=== PATIENT | male | born 1945 | race Caucasian/White ===

== ENCOUNTER → 2018-02-22 | Outpatient (CLI) | payer MEDICARE, BC ==
[~2018-02-22] MED LIST: ASPIRIN E.C. 8181 MG PO; BENICAR40 MG PO; CHERATUSSIN; COZAAR 50MG50 MG/TAB PO; EPA-CON500 MG PO; GLUCOPHAGE500 MG/TAB PO; LIPITOR 40MG TA40 MG PO; LIPITOR40 MG PO; PRAVACHOL 20MG20 MG PO; PRAVACHOL 40MG40 MG PO; SLO-NIACIN500 MG PO; XOPENEX INHALER
== END ==
LOC: MHCPAIN 07:56
DX: G89.29 Other chronic pain (principal); M47.817 Spondylosis without myelopathy or radiculopathy, lumbosacral region; M54.16 Radiculopathy, lumbar region; M43.17 Spondylolisthesis, lumbosacral region
CPT/HCPCS: G0463

== ENCOUNTER → 2018-02-22 | Outpatient (CLI) | payer MEDICARE, BC | LOC: COL.RAD 09:14 | DX: M43.07 Spondylolysis, lumbosacral region (principal); M47.27 Other spondylosis with radiculopathy, lumbosacral region ==

== ENCOUNTER → 2018-03-02 | Outpatient (CLI) | payer MEDICARE, BC | LOC: COL.RAD 07:19 | DX: M99.73 Connective tissue and disc stenosis of intervertebral foramina of lumbar region (principal); M48.061 Spinal stenosis, lumbar region without neurogenic claudication; M43.07 Spondylolysis, lumbosacral region; M47.27 Other spondylosis with radiculopathy, lumbosacral region ==

== ENCOUNTER → 2018-03-04 | Outpatient (CLI) | payer MEDICARE, BC | LOC: MHCPAIN 08:47 | DX: G89.29 Other chronic pain (principal); M47.817 Spondylosis without myelopathy or radiculopathy, lumbosacral region; M54.16 Radiculopathy, lumbar region; M53.3 Sacrococcygeal disorders, not elsewhere classified; M43.17 Spondylolisthesis, lumbosacral region | CPT/HCPCS: G0463 ==

== ENCOUNTER → 2018-03-10 | Outpatient (CLI) | payer MEDICARE, BC | LOC: MHCPAIN 07:32 | DX: M47.817 Spondylosis without myelopathy or radiculopathy, lumbosacral region (principal); M43.17 Spondylolisthesis, lumbosacral region | CPT/HCPCS: J1100; Q9967 ==

== ENCOUNTER → 2018-03-24 | Outpatient (CLI) | payer MEDICARE, BC | LOC: MHCPAIN 08:19 | DX: G89.29 Other chronic pain (principal); M47.817 Spondylosis without myelopathy or radiculopathy, lumbosacral region; M54.16 Radiculopathy, lumbar region; M53.3 Sacrococcygeal disorders, not elsewhere classified; M43.17 Spondylolisthesis, lumbosacral region | CPT/HCPCS: G0463 ==

== ENCOUNTER → 2018-07-06 | Outpatient (CLI) | payer MEDICARE, BC | LOC: MHCPAIN 15:14 | DX: G89.29 Other chronic pain (principal); M47.817 Spondylosis without myelopathy or radiculopathy, lumbosacral region; M54.16 Radiculopathy, lumbar region; M53.3 Sacrococcygeal disorders, not elsewhere classified | CPT/HCPCS: G0463 ==

== ENCOUNTER → 2018-10-26 | Outpatient (CLI) | payer MEDICARE, BC | LOC: MHCPAIN 12:46 | DX: G89.29 Other chronic pain (principal); M47.817 Spondylosis without myelopathy or radiculopathy, lumbosacral region; M54.16 Radiculopathy, lumbar region; M53.3 Sacrococcygeal disorders, not elsewhere classified | CPT/HCPCS: G0463 ==

== ENCOUNTER → 2018-10-27 | Outpatient (CLI) | payer MEDICARE, BC | LOC: MHCPAIN 08:57 | DX: M47.817 Spondylosis without myelopathy or radiculopathy, lumbosacral region (principal); M54.16 Radiculopathy, lumbar region | CPT/HCPCS: J1040; Q9967 ==

== ENCOUNTER → 2018-12-27 | Outpatient (CLI) | payer MEDICARE, BC | LOC: MHCPAIN 09:47 | DX: G89.29 Other chronic pain (principal); M47.817 Spondylosis without myelopathy or radiculopathy, lumbosacral region; M54.16 Radiculopathy, lumbar region; M53.3 Sacrococcygeal disorders, not elsewhere classified | CPT/HCPCS: G0463 ==

== ENCOUNTER → 2019-06-27 | Outpatient (CLI) | payer MEDICARE, BC | LOC: MHCPAIN 09:46 | DX: G89.29 Other chronic pain (principal); M47.817 Spondylosis without myelopathy or radiculopathy, lumbosacral region; M54.16 Radiculopathy, lumbar region; M53.3 Sacrococcygeal disorders, not elsewhere classified | CPT/HCPCS: G0463 ==

== ENCOUNTER → 2020-02-20 | Outpatient (CLI) | payer MEDICARE, BC | LOC: MHCPAIN 08:52 | DX: M47.817 Spondylosis without myelopathy or radiculopathy, lumbosacral region (principal); M54.5 Low back pain; M53.3 Sacrococcygeal disorders, not elsewhere classified; M43.17 Spondylolisthesis, lumbosacral region | CPT/HCPCS: G0463 ==

== ENCOUNTER → 2020-10-28 | Outpatient (CLI) | payer MEDICARE, BC | LOC: MHCPAIN 10:07 | DX: M47.817 Spondylosis without myelopathy or radiculopathy, lumbosacral region (principal); M54.5 Low back pain; M53.3 Sacrococcygeal disorders, not elsewhere classified; G89.29 Other chronic pain | CPT/HCPCS: G0463 ==